=== PATIENT | male | born 1975 | race African-American/Black ===

== ENCOUNTER 2019-02-05 23:12 | Emergency (ER) | payer OTHER ==
[~2019-02-05] VITALS: Ht 167.6 cm; Wt 89.5 kg
[2019-02-06 00:04] VITALS: Ht 167.6 cm; Wt 89.5 kg
[2019-02-06] MEDS ORDERED: NORVASC5 MG (00:05)
[2019-02-06] MEDS ORDERED: TRIAMTERENE-HCT1 TA2 PO (00:05)
[2019-02-06] MEDS ORDERED: KEFLEX500 MG PO (00:21)
[2019-02-06] MEDS ORDERED: HYDROCODON-ACE1 EAC2 PO (00:21)
[2019-02-06 00:52] VITALS: BP 128/81
== END 2019-02-06 00:52 | disposition home or self-care (01) ==
LOC: D.ER 23:12
DX: S01.312A Laceration without foreign body of left ear, initial encounter (principal); Y04.2XXA Assault by strike against or bumped into by another person, initial encounter; Y93.89 Activity, other specified; Y92.89 Other specified places as the place of occurrence of the external cause

== ENCOUNTER 2019-02-10 16:46 | Emergency (ER) | payer OTHER ==
[~2019-02-10] VITALS: Ht 167.6 cm; Wt 87.7 kg
[~2019-02-10 16:46] MED LIST: HYDROCODON-ACE1 EAC2 PO; KEFLEX500 MG PO; NORVASC5 MG; TRIAMTERENE-HCT1 TA2 PO
[2019-02-10 16:50] VITALS: Ht 167.6 cm; Wt 87.7 kg
[2019-02-10] MEDS ORDERED: VOLTAREN75 MG PO (18:43)
[2019-02-10 18:50] VITALS: BP 136/84
== END 2019-02-10 18:50 | disposition home or self-care (01) ==
LOC: D.ER 16:46
DX: S09.90XA Unspecified injury of head, initial encounter (principal); X58.XXXA Exposure to other specified factors, initial encounter; Y93.89 Activity, other specified; Y92.89 Other specified places as the place of occurrence of the external cause; S06.0X9A Concussion with loss of consciousness of unspecified duration, initial encounter

== ENCOUNTER 2019-02-12 15:28 | Emergency (ER) | payer OTHER ==
[~2019-02-12] VITALS: Ht 167.6 cm; Wt 87.5 kg
[~2019-02-12 15:28] MED LIST changes: +VOLTAREN75 MG PO
[2019-02-12 15:38] VITALS: BP 109/77; Ht 167.6 cm; Wt 87.5 kg
[2019-02-12] MEDS ORDERED: KEFLEX500 MG PO (18:50)
== END 2019-02-12 19:16 | disposition home or self-care (01) ==
LOC: D.ER 15:28
DX: R51 Headache (principal); S01.312D Laceration without foreign body of left ear, subsequent encounter; X58.XXXD Exposure to other specified factors, subsequent encounter

== ENCOUNTER 2019-02-15 14:31 | Emergency (ER) | payer OTHER ==
[~2019-02-15] VITALS: Ht 167.6 cm; Wt 87.7 kg
[2019-02-15 14:35] VITALS: Ht 167.6 cm; Wt 87.7 kg
[2019-02-15 15:47] VITALS: BP 132/85
== END 2019-02-15 15:49 | disposition home or self-care (01) ==
LOC: D.ER 14:31
DX: S01.312D Laceration without foreign body of left ear, subsequent encounter (principal); X58.XXXD Exposure to other specified factors, subsequent encounter; Z48.02 Encounter for removal of sutures